=== PATIENT | male | born 1950 | race Caucasian/White ===

== ENCOUNTER → 2021-09-19 | Outpatient (CLI) | payer MEDICARE, MEDICAID | LOC: COL.RAD 09:18 | DX: R41.89 Other symptoms and signs involving cognitive functions and awareness (principal) | CPT/HCPCS: A9585 ==

== ENCOUNTER 2023-05-28 13:30 | Outpatient (RCR) | payer MEDICARE, MEDICAID | END 2023-05-30 | disposition home or self-care (01) | LOC: MKS.ESL.PT | DX: G91.8 Other hydrocephalus (principal); R29.6 Repeated falls; R26.89 Other abnormalities of gait and mobility ==

== ENCOUNTER 2023-06-25 12:00 | Outpatient (RCR) | payer MEDICARE, MEDICAID | END 2023-06-29 | disposition home or self-care (01) | LOC: MKS.ESL.PT | DX: G91.8 Other hydrocephalus (principal); R26.9 Unspecified abnormalities of gait and mobility; R26.89 Other abnormalities of gait and mobility ==

== ENCOUNTER 2024-06-28 16:55 | Inpatient (IN) | payer MEDICARE, MEDICAID ==
[~2024-06-28] VITALS: Ht 195.6 cm; Wt 85.1 kg
[~2024-06-28 16:55] MED LIST: AMOXICILLIN 8751 TAB PO
[2024-06-28] MEDS ORDERED: NAMENDA 10MG TA10 MG PO (19:24)
[2024-06-28] MEDS ORDERED: BIKTARVY 50-201 EACH PO (19:24)
[2024-06-28] MEDS ORDERED: ZOLOFT 50MG50 MG PO (19:24)
[2024-06-28] MEDS ORDERED: CRESTOR 10MG10 MG PO (19:24)
[2024-06-28] MEDS ORDERED: EXELON9.5 MG/24 TD (19:25)
[2024-06-28] MEDS ORDERED: oxyCODONE 5 MG TAB PO PRN (19:30)
[2024-06-28] MEDS ORDERED: D5 1/2 NS 1,000 ML IV SCH (19:30)
[2024-06-28] MEDS ORDERED: Morphine 4 MG/ML VIAL IV PRN (19:30)
[2024-06-28] MEDS ORDERED: Naloxone 0.4 MG/ML VIAL IV PRN (19:30)
[2024-06-28] MEDS ORDERED: Acetaminophen 500 MG TAB PO SCH (20:27)
[2024-06-28] MEDS ORDERED: Doxycycline Monohydrate 100 MG CAP PO SCH (21:00)
[2024-06-28] MEDS ORDERED: Memantine 10 MG TAB PO SCH (21:00)
--- NOTE | 2024-06-28 21:20 | NUR ---
Report recieved from JANESSA Snyder from ED. All questions answered at this time.
[2024-06-28 21:35] VITALS: BP 124/74; PULSE 66; TEMP 98
--- NOTE | 2024-06-28 21:42 | NUR ---
Patient arrived to room 326 at this time. Rates pain at 5/10, meds given. Needs met. Assessment and med rec complete. IV in right forearm flushes easily without complications. Oriented patient to room, bed, and call light. Call light and personal items in reach. Bed in low position and bed alarm on.
[2024-06-28 22:00] LABS: BASO % 0.3 % (0.0-2.0); GRAN # 8.9 K/mm3 (1.4-6.5); GRAN % 79.4 % (42.2-75.2); HEMATOCRIT 44.3 % (42.0-52.0); HEMOGLOBIN 15.5 g/dl (13.5-18.0); LYMPH # 1.3 K/mm3 (1.2-3.4); LYMPH % 11.3 % (20.0-51.0); MEAN CELL VOLUME 87 fl (80.0-100.0); MEAN CORPUSCULAR HEMOGLOBIN 31 pg (27-31); MEAN CORPUSCULAR HGB CONC 35 g/dl (33.0-37.0); MEAN PLATELET VOLUME 10.6 fl (7.4-10.4); MONO % 8.5 % (1.7-9.3); PLATELET COUNT 173 K/mm3 (130-400); RED BLOOD COUNT 5.08 M/mm3 (4.20-5.60); REDCELL DISTRIBUTION WIDTH-CV 12.7 % (11.5-14.5)
[2024-06-28 22:09] LABS: INR 1.2 (0.8-3.0); PROTHROMBIN TIME 12.8 SECONDS (9.7-12.8)
[2024-06-28 22:25] LABS: ALBUMIN 4.3 g/dL (3.4-4.8); BILIRUBIN,TOTAL 1.2 mg/dL (0.2-1.2); CALCIUM 10.5 mg/dL (8.4-10.2); CREATININE, serum 1.16 mg/dL (0.72-1.25); POTASSIUM 4.3 mEq/L (3.5-4.5); TOTAL PROTEIN 6.9 g/dl (6.2-8.1)
[2024-06-29] VITALS (14 sets, daily range): BP systolic 102–120; BP diastolic 63–74; PULSE 57–109; TEMP 97.7–98.5
[2024-06-29 00:56] LABS: COLLECTION METHOD CLEAN CATCH
[2024-06-29 02:24] LABS: PH 5.5 (5.0-8.5); URINE APPEARANCE CLEAR (CLEAR/HAZY); URINE BLOOD NEGATIVE (NEGATIVE); URINE COLOR Dark Yellow (YELLOW); URINE GLUCOSE TRACE (NEGATIVE); URINE KETONE 4+ (NEGATIVE); URINE NITRATE NEGATIVE (NEGATIVE); URINE PROTEIN(semi-quant) 1+ (NEGATIVE)
--- NOTE | 2024-06-29 07:24 | NUR ---
ROUNDED, PLAN OF CARE REVIEWED & MRI CALLED. THEY REPORT THEY WILL GET MRI DONE SOMETIME BETWEEN 1130 AND 2 PM. MADE AWARE
[2024-06-29] MEDS ORDERED: Patient's Own Medication Item PO SCH (09:00)
[2024-06-29] MEDS ORDERED: RIVASTIGMINE 4.6 MG/24 HR TD SCH (09:00)
--- NOTE | 2024-06-29 10:15 | NUR ---
Patient resting in bed. He is alert, but not fully oriented. He reports his name and birthday, but using white board and cell phone to tell me the date. He does not recall having a broken hip. He reports falling [place]. Assessment completed. Attempted to call consult to ENT, unsuccessful. but office staff given number and consutl information. Hospitalist team made aware. Awating MRI. High fall risk followed. Denies other needs at this time
--- NOTE | 2024-06-29 11:02 | NUR ---
Initial visit; Patient thanked Supervisor Shop for visiting and asking how he is doing. Supervisor Shop was good friends with his mother and let him know how much she enjoyed her. "Michael" let Supervisor Shop know that a fall brought him to the hospital and is hoping her prayers will get him back home. will keep Michael in her prayers and offered God's blessings.
--- NOTE | 2024-06-29 12:18 | NUR ---
animal care service worker was notified by patient's nurse that patient has had some confusion and that patient's son, Carson, was present when he was brought to the hospital. SW met with patient to discuss discharge planning. SW explained she meets with the surgical patients to discuss discharge needs. Patient stated that he did not know her was a surgery patient. SW discussed this with patient. Patient reports he lives in [place] with his . SW asked for patient's 's name, patient unable to provide and asked to come back to that question. SW explained they had a contact, Carson, listed. Patient stated that was his son, search in his phone and provided his P# [phone]. SW asked about PCP, patient could not remember PCP name but was adamant that it was a male. Patient received a call from Carson, patient asked his PCP name to Carson, social service manager could not hear the response but patient stated "well maybe I will call your mom then." Carson responded then patient stated "yeah maybe I should call Hafsa then." Patient ended the call. SW asked whom Hafsa is, patient stated that she was his significant other. SW asked if Hafsa was his as he stated earlier that he lives with his . Patient stated no, just girlfriend. SW asked whom his is, patient stated "oh that is Miesha." SW asked for clarification on /significant other, patient stated Miesha is his and Hafsa is his girlfriend. SW asked if patient has a DPOA-HC. Patient stated he was not certain if he had one and asked if that would be his . SW explained if patient does not have a DPOA-HC it would go to his next of kin which if he is , it would be his otherwise it would go to his children. SW asked for Miesha's phone number, patient called Miesha and put her on speaker phone. Miesha stated she was not patient's DPOA-HC and sounded surprised to find out patient was in the hospital. Patient stated he was in the hospital for back pain. SW asked about DME, patient stated he has none and that he is independent in his home. Patient stated he drives to and from appointments. SW contacted patient's son, Carson, P# [phone], and explained it appeared patient was confused on some of her questions and wanted to verify with him. Carson stated Miesha and the patient are . Carson reports to be patient's DPOA-HC. Carson reports Hafsa is patient's significant other and currently living in [place] and having medical concerns of her own. Hafsa P# [phone]. Patient's PCP is Dr. Mehta and Carson reports he has a social service manager at [facility], [facility]. Carson expressed patient has dementia and it has been getting worse the last month or so. Carson explained patient is currently living on his own but feels he is not able to do so anymore. Carson reported he received some concerning texts from patient earlier that morning stating that he was in [facility] and he was going to need a rescue squad to get him. DEISI explained she would not be able to make patient go to a nursing facility if he did not want to unless he does not have decision making capacity. Carson expressed he understood but patient mentioned when he came to the hospital that "it might be time". Carson stated if he goes to a nursing facility patient knows some residents at [facility], so that would be the first preference but other than that anywhere in [place] or near [place] would be preferred. DEISI explained she would notify the main social service manager, Adeline, of all of this information to keep in mind while working on his discharge plan and they would be in touch with him. Carson understood. DEISI contacted DEISI Mckeon at [facility]. Helena expressed patient is currently living alone above [facility]. Helena reports they have been discussing patient going to an AL or LTC for awhile but they have not been agreeable. Patient's insurance is now Medicare All Well, Helena expressed she believes All Well called the patient and with his dementia he changed it without notifying anyone. Helena expressed they have been trying to work with the patient and family on getting it changed back to his Humana/UHC that he had before but it has been difficult. Helena reports patient's Medicaid is not active, he was on the frail and elderly waiver but let his [employer] lapse. Helena expressed an application has been turned into [employer] but there has not been an update on the status. Helena reports patient has a DPOA-HC and it lists Hafsa and Carson, which Helena reports they are to make the decisions together according to the DPOA-HC paperwork. DEISI asked if patient has a form stating patient does not have decision making capacity. Helena stated no but the DPOA-HC form states it is active immediately. Helena expressed Hafsa is in [place] and has been coordinating patient's transportation to appointments through the [facility] from [place]. Helena reports patient does not drive. Helena believes rehab would be very beneficial for patient and if he would stay correction or even AL that would be best for the patient. Helena stated patient has been using [facility] due to his insurance being switched to All Well, so his son has to picker and packer the medications. Helena stated she is not certain patient has been taking his medications properly because of this. DEISI received the copy of the DPOA-HC which lists patient as the first agent, Hafsa as secondary and Carson as third then it states that Hafsa and Carson must make the decisions together. DEISI also notes it states that it would be active immediately. DEISI placed a copy of the DPOA-HC on the chart. DEISI notified main surgical social service manager, Adeline, and patient's nurse of the above information. Discharge plan: SNF
--- NOTE | 2024-06-29 13:24 | NUR ---
Patient sleeping. Reports being tired. Will let him rest.
--- NOTE | 2024-06-29 15:20 | NUR ---
precision printing worker faxed referral to [facility] and [facility]. secure emailed referral to [facility]. Discharge plan: SNF then possibly LTC after rehab
--- NOTE | 2024-06-29 16:52 | NUR ---
MADE AWARE OF MRI BEING COMPLETED. HOSPITALIST MADE AWARE OF WANTING PATIENT CLEARED FOR OR TMRW 06/30/24. DIET ORDERED AND PATIENT TO BE NPO 0000
--- NOTE | 2024-06-29 19:40 | NUR ---
Patient did well with dinner. Denies pain at rest. Report to [facility] services[facility]
--- NOTE | 2024-06-29 20:15 | NUR ---
Patient resting in bed. Denies any pain or needs at this time. Assessment complete. IV in right hand infusing without complicaitons. Call light and personal items in reach. Bed in low position and bed alarm on.
[2024-06-30] VITALS (18 sets, daily range): BP systolic 93–124; BP diastolic 55–97; PULSE 52–99; TEMP 97–98.5
[2024-06-30 07:00] LABS: BASO % 0.7 % (0.0-2.0); EOS # 0.2 K/mm3 (0.0-0.7); EOS % 2.5 % (0.0-4.0); GRAN # 3.5 K/mm3 (1.4-6.5); GRAN % 57.5 % (42.2-75.2); HEMATOCRIT 39.9 % (42.0-52.0); HEMOGLOBIN 13.9 g/dl (13.5-18.0); LYMPH # 1.7 K/mm3 (1.2-3.4); LYMPH % 27.4 % (20.0-51.0); MEAN CELL VOLUME 87 fl (80.0-100.0); MEAN CORPUSCULAR HEMOGLOBIN 30 pg (27-31); MEAN CORPUSCULAR HGB CONC 35 g/dl (33.0-37.0); MEAN PLATELET VOLUME 10.6 fl (7.4-10.4); MONO # 0.7 K/mm3 (0.1-0.6); MONO % 11.6 % (1.7-9.3); PLATELET COUNT 156 K/mm3 (130-400); RED BLOOD COUNT 4.58 M/mm3 (4.20-5.60)
[2024-06-30 07:14] LABS: CALCIUM 10.1 mg/dL (8.4-10.2); CREATININE, serum 0.87 mg/dL (0.72-1.25); POTASSIUM 3.8 mEq/L (3.5-4.5)
--- NOTE | 2024-06-30 09:13 | NUR ---
Patient awake, alert, oriented x2. Laying in bed, requires frequent reorienting and reminders of why he is in the hospital and why he cannot get out of bed on his own. Bed in lowest position with call light within reach. Son updated with plan - Dr. Aguilar to call later.
--- NOTE | 2024-06-30 09:37 | NUR ---
Phone call to son and SAPNA Byrd, consents completed.
[2024-06-30] MEDS ORDERED: hydrALAZINE 20 MG/ML 1 ML VIAL IV PRN (10:00)
[2024-06-30] MEDS ORDERED: LR 1,000 ML IV SCH (10:00)
[2024-06-30] MEDS ORDERED: droPERidol 2.5 MG/ML 2 ML VIAL IV PRN (10:00)
[2024-06-30] MEDS ORDERED: fentaNYL 50 MCG/ML 1 ML SYRINGE/VIAL [PACU/SDC ONLY] IV PRN (10:00)
[2024-06-30] MEDS ORDERED: Ondansetron 4 MG/2 ML VIAL IV PRN ×2 (10:00→12:45)
[2024-06-30] MEDS ORDERED: HYDROmorphone 1 MG/1 ML SYRINGE [PACU/SDC ONLY] IV PRN (10:00)
[2024-06-30] MEDS ORDERED: fentaNYL 50 MCG/ML 2 ML VIAL ONE (10:08)
[2024-06-30] MEDS ORDERED: Glycopyrrolate 0.2 MG/ML 1 ML VIAL ONE (10:09)
[2024-06-30] MEDS ORDERED: NS 10 ML IV ONE (10:09)
[2024-06-30] MEDS ORDERED: Ondansetron 4 MG/2 ML VIAL ONE (10:09)
[2024-06-30] MEDS ORDERED: dexAMETHasone 10 MG/ML VIAL ONE (10:09)
--- NOTE | 2024-06-30 10:30 | NUR ---
Pt transported down to OR
[2024-06-30] MEDS ORDERED: ePHEDrine 50 MG/ML VIAL ONE (11:13)
[2024-06-30] MEDS ORDERED: HYDROmorphone 0.5 MG/0.5 ML SYRINGE IV PRN (12:45)
[2024-06-30] MEDS ORDERED: Magnes Hydrox (MOM) 80 MG/ML 30 ML CUP PO PRN (12:45)
[2024-06-30] MEDS ORDERED: Naloxone 0.4 MG/ML VIAL IV PRN (12:45)
[2024-06-30] MEDS ORDERED: NS 1,000 ML IV SCH (12:45)
[2024-06-30] MEDS ORDERED: oxyCODONE 5 MG TAB PO PRN ×2 (12:45)
[2024-06-30] MEDS ORDERED: Acetaminophen 500 MG TAB PO SCH (13:44)
--- NOTE | 2024-06-30 15:46 | NUR ---
technicians and trades workers was notified [facility] is unable to accept due to insurance unless patient is able to private pay. DEISI was notified [facility] is unable to accept. DEISI spoke with main sexual assault social worker, Adeline, regarding referrals. DEISI faxed referral to [facility] [place] [place] ([place] and [facility] ([place] DEISI also secure emailed the referral to [facility] and [facility] because of fax difficulties. Discharge plan: SNF
--- NOTE | 2024-06-30 16:02 | NUR ---
Sheet Metal Supervisor spoke with Princess at [facility] who requested patient's insurance card. DEISI met with patient and with his permission, looked through his wallet (with Arleen Blister Pack Operator also present) and there was no All Well card. There was a Humana Card there. DEISI contacted Princess and stated there was no card that SW could locate. Princess advised she would see what she can do with the ID number. DEISI contacted Carson son to provide update on referrals. Carson thought possibly patient was supposed to switched back to Humana possibly this month. DEISI sent an email to admissions to check on this. DEISI then received a call from DEISI Malik at [facility] who advised son was supposed to be in touch with [employer] James Counselor to discuss switching plans and that it would not be in effect this month. Helena wasn't sure if he switched if it would change Jul 31 or Sep 30. Helena stated they are also following up with [facility] to get the frail and elderly waiver back in place.
[2024-06-30] MEDS ORDERED: ceFAZolin 2 G in Water For Injection,Sterile 20 ML IV SCH (18:00)
[2024-06-30] MEDS ORDERED: Sennosides/Docusate 8.6-50 MG TAB PO SCH (21:00)
--- NOTE | 2024-06-30 23:07 | NUR ---
patient lyin in bed, alert and oriented x3 with some confusion/forgetfullness. denies chest pain and shortness of breath. IV in RF is patnet, site CDi with NS running at 75 ml/hr. right hip/upper leg with x3 sites with guaze and tegaderm, right facial lac to eyebrow x9 stitches with bruising noted to right orbital area, sites CDI. fall precautions in place, call light within reach. pt repositioning self as needed. pt has no further needs, questions or concerns at this time.
[2024-07-01] VITALS (11 sets, daily range): BP systolic 97–142; BP diastolic 59–85; PULSE 62–69; TEMP 97.7–98.8
[2024-07-01 06:03] LABS: BASO % 0.1 % (0.0-2.0); GRAN # 8.3 K/mm3 (1.4-6.5); GRAN % 81.2 % (42.2-75.2); HEMOGLOBIN 14.8 g/dl (13.5-18.0); LYMPH % 9.7 % (20.0-51.0); MEAN CELL VOLUME 87 fl (80.0-100.0); MEAN CORPUSCULAR HEMOGLOBIN 31 pg (27-31); MEAN CORPUSCULAR HGB CONC 35 g/dl (33.0-37.0); MEAN PLATELET VOLUME 10.5 fl (7.4-10.4); MONO # 0.9 K/mm3 (0.1-0.6); MONO % 8.6 % (1.7-9.3); PLATELET COUNT 167 K/mm3 (130-400); RED BLOOD COUNT 4.83 M/mm3 (4.20-5.60); REDCELL DISTRIBUTION WIDTH-CV 13.1 % (11.5-14.5)
[2024-07-01 06:28] LABS: CALCIUM 10.6 mg/dL (8.4-10.2); CREATININE, serum 0.83 mg/dL (0.72-1.25); POTASSIUM 3.7 mEq/L (3.5-4.5)
--- NOTE | 2024-07-01 09:22 | NUR ---
Patient awake, alert, oriented x2. Up with PT this AM. Requires frequent reorienting. Denies pain currently, dressing to right hip C/D/I. Bed in lowest position with call light within reach.
--- NOTE | 2024-07-01 12:09 | NUR ---
DEISI Knowles contacted [facility] whom expressed they do not have a bed available. [facility] is also unable to accept patient. DEISI Knowles was notified that [facility] is going to call and follow up with Adeline. DEISI was notified that [facility] at this time is unable to accept due to the patient's HIV medications costing $4,000 per month. DEISI asked if family has a supply already of his medications would they be able to use those and accept. DEISI will follow up on this. DEISI Knowles faxed clinical updates to [facility]. DEISI contacted [facility] to determine if patient could go to [facility] for rehab then LTC or AL from there. Palmira from [facility] is going to speak with her team and discuss patient's case. Discharge plan: SNF
--- NOTE | 2024-07-01 16:46 | NUR ---
Fire And Safety Helper confirmed with Ricardo at [facility] that they cannot accept due to patient's HIV medications costing $4,000-$5000 per month. DEISI was contacted by [facility] who advised they will submit for authorization but were still working through patient's medications. DEISI provided update to both Carson and Hafsa on the status of placement and advised patient's insurance and cost of his HIV medication were unfortunately the two main barriers to placement at this time. DEISI staffed with Resident Associate who sent message to Gaby at [facility] [employer] about creating a "carve out" contract with a SNF to cover the cost of his medication that the facilities cannot afford.
[2024-07-02] VITALS (12 sets, daily range): BP systolic 109–156; BP diastolic 67–76; PULSE 58–71; TEMP 97.1–99.3
--- NOTE | 2024-07-02 03:27 | NUR ---
Patient sitting up to recliner, alert and oriented x3 with occasional confusion. reports 4/10 pain in right upper leg, scheduled tylenol given as requested. pt up to ambulate with gait belt and walker to bathroom and back in recliner. right hip with x3 sites with gauze and tegaderm and right facial lac to eyebrow with 9 stitches, both CDI. bruising noted to right eye. fall precautions in place, call light within reach. pt has no further needs, questions or concerns at this time.
--- NOTE | 2024-07-02 08:00 | NUR ---
PATIENT SITTING UP IN CHAIR. ALERT. CONFUSED BUT EASILY REDIRECTED. COMMENTS ON NEEDING TO VOID, REMINDED A FEW TIMES HE CAN USE THE URINAL, QUICKLY AGREES AND ATTEMPTS, THEN REPEATS THIS A FEW MINUTES LATER. HEAD TO TOE ASSESSMENT COMPLETED, MORNING MEDS GIVEN, NO COMPLAINTS AT THIS TIME. CALL LIGHT IN REACH, CHAIR ALARM IN PLACE, NONSKID SOCKS ON.
--- NOTE | 2024-07-02 12:31 | NUR ---
blasting worker faxed updates to [facility] along with patient's DPOA-HC. Discharge plan: SNF
--- NOTE | 2024-07-02 16:38 | NUR ---
Information Systems Specialist spoke with Rachana at [facility] who had no heard back from patient's insurance and advised they were still working through the cost of medications. DEISI received a message from DEISI Mckeon at patient's PCP office who advised patient's family has a meeting with the [facility] July 14 to discuss changing his insurance. Helena also provided a contact for patient's HIV "[employer]" Division Roadmaster, Jacky (ph#[phone]). DEISI contacted Jacky who advised patient's current CM was Pavithra (ph#[phone]). Pavithra was under the impression that the medications could still be covered under the [employer] program, even in a nursing facility. Pavithra stated she will speak with Jacky to determine the process for this. DEISI received a message from Rachana at [facility] stating they could possibly consider if patient brought in his medications from home. Per RN, patient has 27 pills left in his bottle from home. DEISI will follow up with all parties tomorrow.
--- NOTE | 2024-07-02 23:12 | NUR ---
Patient assessed around 2104. Alert, forgetful/disoriented. Easily redircted. Complained of level 7 pain to right hip area. Given PRN Roxicodone and scheduled APAP. 3 dressings to right femur surgical site are CDI. In bed with call light within reach. High fall risk precautions in place. Bed alarm on. Voices no questions, needs, or concerns at this time.
[2024-07-03] VITALS (12 sets, daily range): BP systolic 100–130; BP diastolic 66–77; PULSE 62–81; TEMP 97.7–98.9
--- NOTE | 2024-07-03 06:24 | NUR ---
Patient given PRN Roxicodone twice as requested for pain during the night. Increased weakness/unsteady gait this morning. Incontinent of urine. Bed change provided. Per ortho, changed top dressing to right femur surgical site. No drainage to dresing, stewart intact. Patient has been awake most of night. Voices no questions, needs, or concerns at this time. In bed with call light within reach. High fall risk precautions in place. Bed alarm on.
--- NOTE | 2024-07-03 08:05 | NUR ---
pt in restroom upon entry, assisted patient to recliner for breakfast. vss. pt reports some discomfort in his right hip but denies need for pain medication. x3 incisions are cdi. bruising present to right hip as well as right side of face. all sutures to right eye are intact. teds to ble. pt is oriented this morning. denies needs at this time. call light in reach. fall precautions in place.
--- NOTE | 2024-07-03 15:08 | NUR ---
Thread Singer followed up with Rachana at [facility] and provided information on patient's home medication count and the contact information for his Positive Connections Hr Payroll Coordinator. SW was contacted by [facility] requested updated therapy notes, which DEISI provided via secure email. DEISI contacted patient's son, Carson with an update.
--- NOTE | 2024-07-03 17:55 | NUR ---
Patient laying in bed. Ate dinner independently. VSS. IV CDI. Denies pain. Call light within reach
--- NOTE | 2024-07-03 20:30 | NUR ---
Scheduled meds administered per NOV. Shift assessment complete. Pt is A&O x4 at this time. Bruising to Rt. mid-low back and Rt. hip. Sutures over Rt. eyebrow. Sutures intact and open to air. X3 incision sites to Rt hip dressed w/ gauze & tegaderm. Dressings CDI. Pt. reports pain is 4/10 with 4 being an acceptable level of pain. No further outstanding findings. Neurocheck complete. Pt. denies needs or request at this time. Call light in reach and fall precautions in place.
--- NOTE | 2024-07-03 23:15 | NUR ---
Pt had unwitnessed fall at 2300. Pt. was found on restroom floor by RN after bed alarm sounded. Pt. denies hitting head or further injury. Vital signs obtained and neuro check completed. This nurse, charge nurse, and third RN assisted pt. back to bed. rehabilitation technician aware and boiling house hand notified. HospitalistGalen PA, notified. No new orders received at this time. Fall precautions in place and telesitter implemented.
[2024-07-04] VITALS (12 sets, daily range): BP systolic 123–151; BP diastolic 61–88; PULSE 69–83; TEMP 97.3–98.7
--- NOTE | 2024-07-04 02:45 | NUR ---
Assisted pt to restroom w/ PCT. Noted pt is putting all weight on Lt side and is wincing with movement. Pt. states he "can't put any weight on it." Notified hospitalist, FREDY Aaron. New orderes received.
--- NOTE | 2024-07-04 02:57 | NUR ---
Notified donor technician of new orders.
--- NOTE | 2024-07-04 03:56 | NUR ---
Pt. c/o 05/09 pain following repositioning for X-rays. Analgesia administered.
--- NOTE | 2024-07-04 06:13 | NUR ---
Assisted pt. to restroom around 0500 and gait had not improved. Upon neurocheck at 0600 pt is only able to move RLE in bed. He reports pain is tolerable following administration of PRN analgesia per MAR and application of ice to affected extremety. Pt denies needs or requests at this time. Call light is in reach, fall precautions in place, and tellesitter in use.
--- NOTE | 2024-07-04 08:00 | NUR ---
Patient sitting up in bed, A&Ox4. VSS. IV CDI. Reports pain in RT hip, pain medication given as requested. Call light within reach. Bed alarm on and telesitter in the room.
--- NOTE | 2024-07-04 16:29 | NUR ---
7 SUTURES REMOVED BY JANESSA PEDRAZA. PATIENT TOLERATED WELL. INCISION CDI, EDGES WELL APPROXIMATED. NO FURTHER NEEDS EXPRESSED.
[2024-07-05] VITALS (11 sets, daily range): BP systolic 117–162; BP diastolic 69–86; PULSE 60–76; TEMP 97.7–98.7
--- NOTE | 2024-07-05 07:24 | NUR ---
Patient laying in bed sleeping, easily awakened with verbal command. VSS. IV CDI. Laying on left side. Ice on RT hip. Call light within reach, bed alarm on and telesitter in the room.
[2024-07-06] VITALS (12 sets, daily range): BP systolic 106–134; BP diastolic 51–87; PULSE 65–93; TEMP 97.6–98.8
[2024-07-06 06:12] LABS: BASO # 0.1 K/mm3 (0.0-0.2); BASO % 0.8 % (0.0-2.0); EOS # 0.1 K/mm3 (0.0-0.7); EOS % 2.2 % (0.0-4.0); GRAN % 63.8 % (42.2-75.2); HEMATOCRIT 38.7 % (42.0-52.0); HEMOGLOBIN 12.9 g/dl (13.5-18.0); LYMPH # 1.4 K/mm3 (1.2-3.4); LYMPH % 22.4 % (20.0-51.0); MEAN CELL VOLUME 91 fl (80.0-100.0); MEAN CORPUSCULAR HEMOGLOBIN 30 pg (27-31); MEAN CORPUSCULAR HGB CONC 33 g/dl (33.0-37.0); MEAN PLATELET VOLUME 9.5 fl (7.4-10.4); MONO # 0.6 K/mm3 (0.1-0.6); MONO % 10.2 % (1.7-9.3); PLATELET COUNT 187 K/mm3 (130-400); RED BLOOD COUNT 4.27 M/mm3 (4.20-5.60); REDCELL DISTRIBUTION WIDTH-CV 13.3 % (11.5-14.5)
[2024-07-06 06:35] LABS: CALCIUM 10.3 mg/dL (8.4-10.2); CREATININE, serum 0.84 mg/dL (0.72-1.25); MAGNESIUM 1.9 mg/dL (1.6-2.6); POTASSIUM 4.2 mEq/L (3.5-4.5)
--- NOTE | 2024-07-06 08:00 | NUR ---
PATIENT SLIGHTLY UPRIGHT IN BED. AAOX2, SELF AND LOCATION. HEAD TO TOE ASSESSMENT COMPLETED. MORNING MEDS GIVEN. AWAITING BREAKFAST. BED IN LOWEST POSITON, CALL LIGHT IN REACH, BED ALARM ON, URINAL AT BEDSIDE, NOSKID SOCKS ON.
--- NOTE | 2024-07-06 09:43 | NUR ---
qualified craft worker electrician faxed clinical updates to [facility]. SW contacted Francisco at [facility] whom expressed the team was currently in their team morning meeting but would follow up with them afterwards to determine where they were at in this process. Francisco expressed he just returned from vacation, social sciences department chair provided a quick update on the patient's needs at this time and his HIV medication cost. Francisco will follow up with DEISI or main surgical SWYareli. Discharge plan: SNF
--- NOTE | 2024-07-06 15:00 | NUR ---
grab jack worker contacted Francisco at [facility] to follow up on referral. Francisco stated they were waiting on the cost of the medication and would follow up with social group worker after he hears back from his director public policy on this cost. Discharge plan: SNF
--- NOTE | 2024-07-06 20:49 | NUR ---
Patient assessed around 1954. Alert with confusion. Reports level 5 pain to right hip area, facial grimacing with turning. Given scheduled APAP and PRN Roxicodone. Peripheral INT to right forearm. Denies SOB and dyspnea. LS CTA. HRR. BSAx4. No edema. Redness/bruising continues to right hip area from fall. Dressing to three surgical sites to right hip/lateral thigh are CDI. Bruising to area. Voices no questions, needs, or concerns at this time. In bed with call light within reach. High fall risk precautions in place. Telesitter in room. Bed alarm on.
[2024-07-07] VITALS (12 sets, daily range): BP systolic 114–152; BP diastolic 64–87; PULSE 65–96; TEMP 98.2–99.8
--- NOTE | 2024-07-07 05:31 | NUR ---
Patient has pain to right hip, but does not want to take anything besides Tylenol at this time. Was incontinent of urine, hygiene care provided. Voices no questions, needs, or concerns at this time. In bed with call light within reach. High fall risk precautions in place. Bed alarm on. Telesitter in room.
--- NOTE | 2024-07-07 11:51 | NUR ---
DEISI spoke with Francisco at [facility] regarding referral. Francisco stated that they are unable to accept patient for admission due to cost of medications. When asked about patient providing the medications himself through the current assistance program through [employer], Francisco stated that the facility is not allowed to do that and would be responsible for all costs. DEISI spoke with Kusum at [facility] who stated that if patient has Title 19 Medicaid that it will cover the cost of his meds in LTC. DEISI then called Helena at PCP office who stated that they have been working with patient's son Carson to get all required documentation to re-submit application for Title 19 services. She states that they submitted the completed application on Saturday07/03/24. DEISI discussed denial and barriers with Director Eliza Vincent. She asked SW to contact [facility] to inquire if they can accept if patient is approved for Title 19 benefits. DEISI spoke with Yesenia, Metallurgy Teacher, to ask this question. She states that they cannot accept under these circumstances. She shared that the only way they can accept patient with current medications/costs would be if there was a "carve out" letter provided stating that insurance or other source would be paying for medication costs and facility would not be responsible for these costs. She also stated that the prescribing physician is the one who would need to write this carve out letter to insurance. Yesenia stated that they would be able to accept patient for admission if he has that carve out letter from insurance. DEISI called Helena at PCP office to communicate the need for carve out letter to be sent to insurance provider by prescribing physician to assist with placement. Helena stated she does not have contact information for patient's insurance and she would need to talk with PCP and Infectious Disease physician to inquire about them writing letter. DEISI faxed copy of patient's demographic sheet to Helena showing contact information for [employer]. Discharge plan: TBD
--- NOTE | 2024-07-07 12:07 | NUR ---
Pt sitting up in the chair with chair alarm on. pt continues to have telesitter with him. Pt was alert and oriented x4 during my assessment. I did assist OT with gettin him up to the chair. He did okay, but was not able to take any steps, only pivot. He did not use the walker
--- NOTE | 2024-07-07 12:45 | NUR ---
sitting up in chair, bedside shift report received from JANESSA Enriquez
--- NOTE | 2024-07-07 14:10 | NUR ---
physical therapy was in to work with patient, connor had voided a scant amount inurinal before therapy arrived, when he stood from chair he was incontinent of large amount clear yellow urine, he was only able to take only a few steps from chair to bed, then assisted to lying down, incontinent care provided, MARY ALICE hose removed at this time, he is alert and oriented times 4 for me, skin is warm and dry, color is good, heart rate is strong and regular, lungs CTA, abdomen is soft and non distended and bowel sounds present in 4 quads, patient states he is passing flatus without difficulty, peripheral pulses present in 4 extremities, has 3 sites to right hip with gauze dressings that are CD&I, cocyx is reddened and mepilex dressing placed, has bruising to area under right eye and laceration area is closed, c/o pain and medicated with roxicodone 2.5mg, will allow to rest
--- NOTE | 2024-07-07 14:56 | NUR ---
appears to be sleeping, in bed with eyes closed, resp quiet and easy
--- NOTE | 2024-07-07 16:28 | NUR ---
entered room and he is trying to use urinal lying in bed and unable, stood him at bedside and he was able to void small amount, needs 2 assist and encouragement to stand, then back to bed, MARY ALICE vides on
--- NOTE | 2024-07-07 19:00 | NUR ---
awake resting in bed, had supper and tolerated well
--- NOTE | 2024-07-07 19:40 | NUR ---
bedside shift report given to JANESSA Tipton
--- NOTE | 2024-07-07 21:43 | NUR ---
Patient assessed around 2044. Alert with confusion. Reports level 10 pain to right hip. Has recently stood on side of bed to use urinal with two assist. Given PRN Roxicodone for pain. Peripheral INT to right forearm. Denies having SOB and dyspnea. LS CTA. HRR. BSAx4. Refused stool softener. Red abrasion to right hip/flank area. Dressings to three surgical sites from hip surgery are CDI. Voices no questions, needs, or concerns at this time. In bed with call light within reach. High fall risk precautions in place. Bed alarm on. Telesitter in room.
[2024-07-08] VITALS (14 sets, daily range): BP systolic 104–135; BP diastolic 66–76; PULSE 87–101; TEMP 97.8–100.8
--- NOTE | 2024-07-08 06:30 | NUR ---
Patient has had increased pain to right hip during the night. Received scheduled Tylenol and PRN Roxicodone per orders, see MAR for times. Has been incontinent of urine during the night. Voices no questions, needs, or concerns at this time. In bed with call light within reach. High fall risk precautions in place. Bed alarm on. Telesitter in room.
--- NOTE | 2024-07-08 08:00 | NUR ---
PATIENT SITTING UP IN BED. ORIENTED X2, SELF AND LOCATION. HEAD TO TOE ASSESSMENT COMPLETED. MORNING MEDS GIVEN. PATIENT REPORTS GENERALIZED PAIN, HIGHLIGHTING RIGHT LOW BACK, RIGHT SIDE, AND A HEADACHE. SCHEDULED TYLENOL GIVEN AND REPLACED ICE PACK TO THE RIGHT SIDE. PATIENT HAS BEEN INCONTINENT, URINAL AT BEDSIDE. CHANGED LINEN AND PROVIDED BRIEF. REPLACED MEPIPLEX AT THE SACRUM. BED IN LOWEST POSITION, CALL LIGHT IN REACH, BED ALARM ON.
[2024-07-08 09:32] LABS: BASO # 0.1 K/mm3 (0.0-0.2); BASO % 0.5 % (0.0-2.0); EOS % 0.3 % (0.0-4.0); GRAN # 9.2 K/mm3 (1.4-6.5); HEMATOCRIT 37.4 % (42.0-52.0); LYMPH # 1.3 K/mm3 (1.2-3.4); LYMPH % 11.1 % (20.0-51.0); MEAN CELL VOLUME 88 fl (80.0-100.0); MEAN CORPUSCULAR HEMOGLOBIN 31 pg (27-31); MEAN CORPUSCULAR HGB CONC 35 g/dl (33.0-37.0); MEAN PLATELET VOLUME 9.2 fl (7.4-10.4); MONO # 1.1 K/mm3 (0.1-0.6); MONO % 9.5 % (1.7-9.3); PLATELET COUNT 206 K/mm3 (130-400); RED BLOOD COUNT 4.23 M/mm3 (4.20-5.60); REDCELL DISTRIBUTION WIDTH-CV 13.2 % (11.5-14.5)
[2024-07-08 09:48] LABS: CALCIUM 10.3 mg/dL (8.4-10.2); CREATININE, serum 0.82 mg/dL (0.72-1.25); POTASSIUM 3.9 mEq/L (3.5-4.5)
--- NOTE | 2024-07-08 10:45 | NUR ---
CALLED RADIOLOGY FOR CXR, SEE ORDERS.
--- NOTE | 2024-07-08 12:30 | NUR ---
STRAIGHT CATH PATIENT ORDERED BY PROVIDER TO OBTAIN UA SAMPLE. REMOVED 1950CC OF URINE, DARK YELLOW. PROVIDER NOTIFED. PATIENT DENIED ANY PAIN IN THE ABDOMEN OR BLADDER. REPORTS SOME RELIEF POST CATH.
[2024-07-08 13:00] LABS: COLLECTION METHOD CLEAN CATCH
[2024-07-08 13:05] LABS: PH 5.5 (5.0-8.5); URINE APPEARANCE CLEAR (CLEAR/HAZY); URINE BLOOD NEGATIVE (NEGATIVE); URINE COLOR YELLOW (YELLOW); URINE GLUCOSE NEGATIVE (NEGATIVE); URINE KETONE NEGATIVE (NEGATIVE); URINE NITRATE NEGATIVE (NEGATIVE); URINE PROTEIN(semi-quant) NEGATIVE (NEGATIVE); URINE UROBILINOGEN 0.2 E.U/dL (0.2-1.0)
--- NOTE | 2024-07-08 15:41 | NUR ---
CALLED RADIOLOGY ABOUT CXR ORDERED THIS AM, SECOND ATTEMPT TO GET X-RAY DONE.
--- NOTE | 2024-07-08 16:08 | NUR ---
DEISI received call from Ricardo at [facility] stating that they have been in contact with their Corporate leadership regarding the carve out letter needed for patient's HIV medication. SW was informed that they could accept patient for admission with the carve out letter IF he was only being admitted for skilled care and discharging to home. However, since patient will require LTC, they state that the carve out letter will NOT apply to that level of care, therefore they cannot accept patient for admission at this time. DEISI discussed with Director Eliza Vincent. DEISI sent email to financial counselor Natalie and her leadership to request assistance from them to expedite the Medicaid application that PCP DEISI Malik submitted last week. Patient will remain inpt until safe discharge can be secured.
[2024-07-09] VITALS (12 sets, daily range): BP systolic 99–145; BP diastolic 58–78; PULSE 87–107; TEMP 98.3–99.8
[2024-07-09 06:21] LABS: BASO % 0.4 % (0.0-2.0); EOS # 0.1 K/mm3 (0.0-0.7); EOS % 0.5 % (0.0-4.0); GRAN # 8.4 K/mm3 (1.4-6.5); GRAN % 77.2 % (42.2-75.2); HEMOGLOBIN 11.7 g/dl (13.5-18.0); LYMPH # 1.2 K/mm3 (1.2-3.4); LYMPH % 11.4 % (20.0-51.0); MEAN CELL VOLUME 90 fl (80.0-100.0); MEAN CORPUSCULAR HEMOGLOBIN 30 pg (27-31); MEAN CORPUSCULAR HGB CONC 34 g/dl (33.0-37.0); MEAN PLATELET VOLUME 9.6 fl (7.4-10.4); MONO # 1.1 K/mm3 (0.1-0.6); MONO % 9.9 % (1.7-9.3); PLATELET COUNT 194 K/mm3 (130-400); RED BLOOD COUNT 3.88 M/mm3 (4.20-5.60); REDCELL DISTRIBUTION WIDTH-CV 13.3 % (11.5-14.5)
[2024-07-09 06:22] LABS: HEMATOCRIT 34.9 % (42.0-52.0)
[2024-07-09 06:36] LABS: CALCIUM 10.1 mg/dL (8.4-10.2); CREATININE, serum 0.85 mg/dL (0.72-1.25); POTASSIUM 4.1 mEq/L (3.5-4.5)
[2024-07-09] MEDS ORDERED: Cefepime 1 G in Water For Injection,Sterile 10 ML IV SCH (08:00)
--- NOTE | 2024-07-09 08:00 | NUR ---
PATIENT SITTING UP IN CHAIR, HEAD TO TOE ASSESSMENT COMPLETED. MORNING MEDS GIVEN. D/C RIGHT WRIST IV, NEW R HAND IV INSERTED. REPORTS PAIN RIGHT LOW BACK. PAIN MEDS GIVEN. CHAIR ALARM ON, NONSKID SOCKS ON, CALL LIGHT IN REACH, TELASITER IN PLACE.
[2024-07-09] MEDS ORDERED: Doxycycline Monohydrate 100 MG CAP PO SCH (09:00)
--- NOTE | 2024-07-09 09:20 | NUR ---
CALLED AND ORDERED SPECIALTY MATRESS PATIENT'S ADL'S HAVE SIGNIFICANTLY DECLINED REQUIRING 2-3 MAX ASSIST WITH TRANSFERS. NO MATRESS AVAILABLE. PATIENT HAS NEW SPECIALTY BED IN ROOM NOW. PATIENT CURRENTLY UP IN BEDSIDE CHAIR WITH PT.
[2024-07-09] MEDS ORDERED: Iohexol 300 - 100 ML VIAL IV ONE (11:22)
[2024-07-09] MEDS ORDERED: NS 100 ML IV SCH (11:42)
--- NOTE | 2024-07-09 12:12 | NUR ---
DEISI attended clinical rounds, patient now being treated for pneumonia. SW unable to secure post acute placement for patient with barriers being insurance and cost of HIV medications. DEISI received call from DEISI Malik at PCP office, stating that she has talked with CHUNG Lamor who is continuing to work with patient's son and significant other on patient's Medicare insurance. Helena stated that she is still unsure if change would be effective the july or september. Helena clarified that the medicaid application to re-instate benefits was submitted approximately 3 weeks ago and that she followed up with [facility] on 07/03 to check status of application. No decision has been made at this time. DEISI encouraged Helena to follow up with [facility] to request application to be expedited. DEISI talked with Director Eliza Vincent regarding lack of ability to secure placement. Eliza suggested resubmitting referrals for placement with medicaid pending status. DEISI called [facility] in [place] and spoke with Kelsey. DEISI discussed the difficulty in placement related to cost of medications and insurance. Kelsey shared that the medication cost would not be a barrier for admission due to the medication being paid for by patient and not facility. She also shared that the have just recently been approved to be a [facility] Medicaid provider. She did agree to review the referral. DEISI called Helena at PCP office back to inquire about type of Medicaid applied for. She stated it is [facility] medicaid and agreed to fax SW a copy of the application to add to referral to [facility]. Referral for placement faxed for review. Discharge plan: SNF to LTC vs AL
--- NOTE | 2024-07-09 20:00 | NUR ---
PATIENT IS ORIENTED X2, NOTED CONFUSION/FORGETFULNESS. C/O PAIN IN RLE WITH MOVEMENT. GAVE PRN ROXICODONE & TYLENOL FOR LOW GRADE TEMPS. ALL OTHER VSS. RIGHT HIP DSG IS CD&I WITH GAUZE. TEDS & SCD'S TO BLE. CLEARY TO DD WITH MOD AMOUNTS OF YELLOW URINE NOTED. RIGHT HAND IV TO INT. NOTED SKIN ISSUES, SEE ASSESSMENT. HEAD TO TOE COMPLETE. HS MEDS GIVEN. PATIENT RESTING UP IN BED WITH CALL LIGHT IN REACH AND BED ALARM ON.
[2024-07-10] VITALS (14 sets, daily range): BP systolic 110–130; BP diastolic 67–79; PULSE 76–99; TEMP 98–99
--- NOTE | 2024-07-10 08:41 | NUR ---
Pt incontinent of stool this morning. Asked pt if he knows when he needs to use the restroom, he stated he did. Informed him to please notify nursing so that we can help him to the commode. He said, "I know." Assisted pt to the chair during this time. Gave pt full bed bath, new gown and changed linens. Breakfast has been ordered for pt
[2024-07-10 10:11] LABS: CD4 CD8 Ratio 0.65 (1.00-2.90); CD4 Helper T Cell 26.6 % (29.0-59.0); CD8 Suppressor T Cells 40.8 % (18.0-36.0)
--- NOTE | 2024-07-10 10:36 | NUR ---
DEISI received call from Fany at [facility] stating that they do not accept patient's [employer] Medicare insurance. She stated that they cannot accept patient for rehab but would consider him for LTC. DEISI asked if patient received rehab at a disfferent SNF if they would take him for LTC, which she stated yes they would work with SNF facility. DEISI called Francisco at [facility] who confirmed conversation from earlier this week realted to being able to accept patient for rehab with carve out letter. Francisco asked for clinical updates to take to his clinical team. Updates faxed. Discharge plan: SNF to transition to LTC
[2024-07-11] VITALS (11 sets, daily range): BP systolic 102–127; BP diastolic 65–70; PULSE 60–97; TEMP 97.4–100
--- NOTE | 2024-07-11 08:00 | NUR ---
PATIENT IS ORIENTED X2, NOTED CONFUSION/FORGETFULNESS. PATIENT HAS FREQUENT FALLS, TELESITTER IN ROOM. VSS. REPORTS LITTLE DISCOMFORT IN RLE THIS AM. GAVE TYLENOL WITH AM MEDS. NO C/O N/V. TOLERATING GENERAL DIET. CLEARY TO DD. 2 MAX ASSIST WITH TRANSFERS. PT/OT CONSULTED. HEAD TO TOE ASSESSMENT COMPLETE. RIGHT HAND IV TO INT. BED ALARM ON. CALL LIGHT IN REACH. PATIENT ROOM DIRECTLY ACCROSS FROM NURSE STATION.
--- NOTE | 2024-07-11 12:41 | NUR ---
Data: Patient accepted spiritual care visit offered during Mental Health Program Director rounds. 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 Assessment: Patient is tired of being in the hospital. Sleepy. In pain. Plan of Care: Mental Health Program Director found two books from the library in the outpatient waiting area. Patient accepted both books. Mental Health Program Director played music from [employer]. Mental Health Program Director provided a prayer. Patient thanked Mental Health Program Director for the visit. Chaplains will remain available as needed/requested while Patient is admitted to this hospital.
[2024-07-12] VITALS (10 sets, daily range): BP systolic 110–132; BP diastolic 66–77; PULSE 78–84; TEMP 97.8–99.5
[2024-07-12 05:22] LABS: BASO % 0.5 % (0.0-2.0); EOS # 0.1 K/mm3 (0.0-0.7); EOS % 1.2 % (0.0-4.0); GRAN # 5.8 K/mm3 (1.4-6.5); GRAN % 77.1 % (42.2-75.2); HEMOGLOBIN 10.9 g/dl (13.5-18.0); LYMPH % 12.6 % (20.0-51.0); MEAN CELL VOLUME 88 fl (80.0-100.0); MEAN CORPUSCULAR HEMOGLOBIN 30 pg (27-31); MEAN CORPUSCULAR HGB CONC 34 g/dl (33.0-37.0); MEAN PLATELET VOLUME 8.7 fl (7.4-10.4); MONO # 0.6 K/mm3 (0.1-0.6); MONO % 7.8 % (1.7-9.3); PLATELET COUNT 276 K/mm3 (130-400); RED BLOOD COUNT 3.63 M/mm3 (4.20-5.60); REDCELL DISTRIBUTION WIDTH-CV 13.2 % (11.5-14.5)
[2024-07-12 05:34] LABS: HEMATOCRIT 32.1 % (42.0-52.0)
[2024-07-12 05:42] LABS: CALCIUM 9.9 mg/dL (8.4-10.2); CREATININE, serum 0.8 mg/dL (0.72-1.25); POTASSIUM 4.1 mEq/L (3.5-4.5)
[2024-07-13] VITALS (13 sets, daily range): BP systolic 102–128; BP diastolic 64–75; PULSE 74–91; TEMP 98–99.4
[2024-07-13 07:00] LABS: BASO % 0.5 % (0.0-2.0); EOS # 0.1 K/mm3 (0.0-0.7); EOS % 1.3 % (0.0-4.0); GRAN # 5.4 K/mm3 (1.4-6.5); GRAN % 69.2 % (42.2-75.2); HEMOGLOBIN 11.2 g/dl (13.5-18.0); LYMPH # 1.2 K/mm3 (1.2-3.4); LYMPH % 15.9 % (20.0-51.0); MEAN CELL VOLUME 90 fl (80.0-100.0); MEAN CORPUSCULAR HEMOGLOBIN 30 pg (27-31); MEAN CORPUSCULAR HGB CONC 33 g/dl (33.0-37.0); MEAN PLATELET VOLUME 9.4 fl (7.4-10.4); MONO # 0.9 K/mm3 (0.1-0.6); MONO % 11.7 % (1.7-9.3); PLATELET COUNT 299 K/mm3 (130-400); RED BLOOD COUNT 3.76 M/mm3 (4.20-5.60); REDCELL DISTRIBUTION WIDTH-CV 13.2 % (11.5-14.5)
[2024-07-13 07:12] LABS: HEMATOCRIT 33.7 % (42.0-52.0)
[2024-07-13 07:21] LABS: CALCIUM 10.1 mg/dL (8.4-10.2); CREATININE, serum 0.83 mg/dL (0.72-1.25); POTASSIUM 4.2 mEq/L (3.5-4.5)
--- NOTE | 2024-07-13 08:00 | NUR ---
PATIENT IS ORIENTED X2, NOTED CONFUSION/FORGETFULNESS. HX OF FREQUENT FALLS, TELESITTER IN ROOM. VSS. REPORTS LITTLE DISCOMFORT IN RLE THIS AM. GAVE TYLENOL WITH AM MEDS. NO C/O N/V. TOLERATING GENERAL DIET. RIGHT FORARM IV TO INT. CLEARY TO DD. 2 MAX ASSIST WITH TRANSFERS. PT/OT CONSULTED. HEAD TO TOE ASSESSMENT COMPLETE. BED ALARM ON. CALL LIGHT IN REACH. PATIENT'S ROOM IS DIRECTLY ACCROSS FROM NURSE STATION.
--- NOTE | 2024-07-13 12:30 | NUR ---
SW attended clinical rounds. Patient is still pending SNF acceptance. DEISI left message for Francisco or Mallory at [facility] to return call to discuss acceptance for rehab. Discharge plan: SNF
--- NOTE | 2024-07-13 21:36 | NUR ---
Patient assessed around 2024. Alert with confusion. Given scheduled Tylenol as requested for pain to right hip. Peripheral INT to right forearm. Received IV ABX per orders. Denies SOB and dyspnea. LS CTA. HRR. BSAx4. No edema. Steristrips to right hip surgical sites are CDI. Voices no questions, needs, or concerns at this time. In bed with call light within reach. High fall risk precautions in place. Bed alarm on.
[2024-07-14] VITALS (11 sets, daily range): BP systolic 99–122; BP diastolic 44–72; PULSE 78–97; TEMP 97.6–99.1
[2024-07-14 06:00] LABS: CREATININE, serum 0.8 mg/dL (0.72-1.25); POTASSIUM 4.5 mEq/L (3.5-4.5)
--- NOTE | 2024-07-14 06:02 | NUR ---
Patient took scheduled Tylenol this shift. Has not needed any PRN medications for pain. New Mepilex placed to bottom. Voices no questions, needs, or concerns at this time. In bed with call light within reach. High fall risk precautions in place. Bed alarm on.
[2024-07-14 06:25] LABS: HEMOGLOBIN 11.4 g/dl (13.5-18.0); MEAN CELL VOLUME 90 fl (80.0-100.0); MEAN CORPUSCULAR HEMOGLOBIN 30 pg (27-31); MEAN CORPUSCULAR HGB CONC 33 g/dl (33.0-37.0); MEAN PLATELET VOLUME 9.5 fl (7.4-10.4); PLATELET COUNT 313 K/mm3 (130-400); RED BLOOD COUNT 3.84 M/mm3 (4.20-5.60); REDCELL DISTRIBUTION WIDTH-CV 13.2 % (11.5-14.5)
[2024-07-14 06:26] LABS: HEMATOCRIT 34.6 % (42.0-52.0)
[2024-07-14 07:04] LABS: EOSINOPHIL 1 % (0-4); LYMPHOCYTE 20 % (20.0-51.0); METAMYELOCYTE 2 % (0-0); NEUTROPHILS 64 % (42.0-75.2); PLATELET ESTIMATE NORMAL (NORMAL)
--- NOTE | 2024-07-14 08:00 | NUR ---
PATIENT IS ORIENTED X2, NOTED CONFUSION/FORGETFULNESS. HX OF FREQUENT FALLS. VSS. REPORTS LITTLE DISCOMFORT IN RLE THIS AM. GAVE TYLENOL WITH AM MEDS. NO C/O N/V. TOLERATING GENERAL DIET. RIGHT FORARM IV TO INT. IV ABX GIVEN. CLEARY TO DD. 2 MAX ASSIST WITH TRANSFERS. PT/OT CONSULTED. HEAD TO TOE ASSESSMENT COMPLETE. BED ALARM ON. CALL LIGHT IN REACH. PATIENT'S ROOM IS DIRECTLY ACCROSS FROM NURSE STATION HE IS IMPULSIVE, TELESITTER REMOVED DUE TO NEED IN ER. STUDENT NURSE ALSO WORKING WITH PATIENT TODAY, SEE CHARTING.
--- NOTE | 2024-07-14 08:05 | NUR ---
Late entry: DEISI spoke with Yesenia, Aerospace Project Manager at [facility], regarding acceptance for skilled care. Yesenia stated that their Corporate declined patient for admission. DEISI met with treatment team and Leadership regarding patient discharge status. Patient has been referred to many SNF facilities with no accepts. 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 Message left for Graciela at [facility] to return call to discuss acceptance for halfway care that was discussed late last week. Discharge plan: LTC
--- NOTE | 2024-07-14 12:45 | NUR ---
DEISI attended clinical rounds. Patient remains stable for discharge. Currently no accepting facility for placement. DEISI staff case with Director Eliza Vincent who instructed to make follow up calls to existing referrals and expand referral area. DEISI and DEISI Ballard sent multiple follow up faxes and email referrals for LTC placement. The following facilities received updated clinical referrals: [facility], [facility], [facility], [place], [facility], [facility], [facility], [facility], [facility], [facility], [facility], [facility], [facility], [facility], [facility], [facility], Eliza, [facility]. The following facilities have declined referral: [facility], [facility], [facility], [facility], [facility], [facility], [facility], [facility] [place], [facility]. DEISI Ballard received call from [facility] stating they are reviewing for admission and from [facility] who also expressed interest in admission. Marsha has questions related to financials and Medicaid application. Discharge plan: LTC
--- NOTE | 2024-07-14 13:00 | NUR ---
DEISI spoke with Nicolasa at [facility] who could accept pt, but they would like to submit for auth with Chris and this can take 48 hours. DEISI inquired about taking him with auth pending and bill under his Medicaid. She reports that this is a case by case scenario by their Regional. But, they do accept him. DEISI spoke with Director Eliza Vincent and wanted to ensure they could still accept knowing he has costly HIV medications. DEISI spoke with Marian and they would like to attempt auth, but aware it will be likely declined or skilled a few days. DEISI informed her that under a skilled stay, she would need a Carve Out letter from insurance and would have to contact them to request this. DEISI informed her the other option is taking pt LTC/Medicaid pending with the [employer] paying. She would like to reach out to the Foundation to navigate this and will reach out to insurance. DEISI provided her PARRIS Arshad [phone] number with "[employer]" that assist with the Foundation program. Nicolasa also reports she will speak with pt's son, Carson. DEISI team spoke with Marsha Bolaños Joseph who will have their DON call with additional questions/concerns. DEISI, Director Eliza, and DEISI Downs all will attend a 10am meeting tomorrow [facility] to discuss pt's Medicaid and how to change it to long-term care half-way.
--- NOTE | 2024-07-14 21:43 | NUR ---
PATIENT ALERT AND ORIENTED X2 WITH INTERMITTENT CONFUSION. PATIENT HERE FOR RIGHT HIP FX. RIGHT HIP SURGICAL SITES X3 WITH STERI STRIPS APPLIED. PATIENT DENIES ANY PAIN AT THIS TIME. IV TO RIGHT FA INT AND FLUSHES WELL. PM MEDS ADMINISTERED. SEE SKIN ASSESSMENT. NO FURTHER NEEDS. CALL LIGHT IN REACH. BED ALARM ON.
[2024-07-15] VITALS (11 sets, daily range): BP systolic 100–119; BP diastolic 63–78; PULSE 72–83; TEMP 97.5–98.6
--- NOTE | 2024-07-15 10:32 | NUR ---
Pt doing well, tolerating breakfast. He is sitting up in the chair and working with therapy as scheduled. PRN pain medication given. Chair alarm on
--- NOTE | 2024-07-15 14:17 | NUR ---
pressroom worker attended 10am meeting with Director Kay, DEISI Downs, and CARRIE Hanna Audra will work to contact [facility] to update pt's Medicaid application to change to shelter placement with finacials added. Audra is going to get connected with the [employer] to get more information on pt's medication voucher program and ensure he is not on housing assistance to avoid him getting evicted. Audra suggest a discussion re: Goals of Care vs Hospice. Follow-up meeting will be held tomorrow at 9am. DEISI team and Director Eliza have spoke with DEISI Cota at pt's PCP to have him considered by Dr. Poole for hospice dx. DEISI spoke with [facility] OP. in the morning, who reported the Medicaid anita needs to be edited prior to his acceptance. Sonia reports their Regional is willing to bring him in without prior auth from Medicare [employer]. DEISI emailed referral to Silvestre Roberts with [facility] facilities. DEISI received declines from Yadiel Coffey and [facility]ha [facility]. DEISI resent to [facility]. DEISI returned missed voicemail and left message to Iris at [facility]. Discharge Plan: LTC- Medicaid pending
--- NOTE | 2024-07-15 16:00 | NUR ---
Pt doing okay, wants to leave, states he has been here long enough. Explained we are trying to find somewhere for him to go to help with therapy. Pt states he understands. Chair/bed alarm on
--- NOTE | 2024-07-15 22:17 | NUR ---
PATIENT ALERT AND ORIENTED X4. VSS. PATIENT HERE FOR RIGHT FEMUR FX. RIGHT HIP WITH 3 SITES WITH STERI STRIPS APPLIED. IV TO RIGHT FA INT AND FLUSHES WELL. PATIENT DENIES PAIN AT THIS TIME. PM MEDS ADMINISTERED. [place] DD WITH [facility]. PATIENT RESTING IN BED, CALL LIGHT IN REACH. BED ALARM ON.
[2024-07-16] VITALS (12 sets, daily range): BP systolic 102–123; BP diastolic 67–76; PULSE 62–78; TEMP 97.3–98.6
--- NOTE | 2024-07-16 08:30 | NUR ---
SHIFT ASSESSMENT COMPLETED. PATIENT RESTING IN BED ABOUT TO WORK WITH THERAPY. ALL MORNING MEDS GIVEN ORDERED. PATIENT EXPRESSES PAIN 2/10 NO PAIN MEDS GIVEN AT THIS TIME. FALL PRECAUTIONS IN PLACE AND CALL LIGHT IN REACH
--- NOTE | 2024-07-16 13:43 | NUR ---
DEISI left a voicemail to Marian at [facility] to inquire if they reviewed pt further. DEISI faxed updates. DEISI was informed [facility] in [facility] was interested. DEISI faxed updates, then financials to their Business Office f: [phone] Lfor. DEISI attended 9am meeting with [facility] staff with Director Eliza Vincent and DEISI Downs. Pt's financials were obtained from son and will be sent to the Medicaid Clearinghouse for updates. There are concerns with him having too much and needing to spend down. [facility] suggested [facility] in , [place] who specializes in HIV clients. DEISI spoke with Director Brodie with [facility] and he is open to reviewing pt and states they specialize in Medicaid assistance. He has two openings. DEISI faxed referral at 1:45pm. DEISI completed CARE Assessment with pt and spoke with son, Carson to get further information about pt's history. DEISI submitted this on [facility] CARE portal. DEISI spoke with Natalie, financial services officer who has JESSICA's signed by pt and will fax financials to [place]. She will call them Saturday or Saturday to f/u on status and anticiapates an answer per her cured meat packing supervisor, Loli. Discharge Plan: LTC
--- NOTE | 2024-07-16 14:22 | NUR ---
SW met with patient to assess mental status and update on discharge plan. Patient completing bed exercises with PT upon SW arrival. Patient alert, oriented to person and place. He reports to know he's in [facility] but cannot remember why he's here. When SW explained, patient stated "Oh , that's right". Patient updated on team trying to locate placement for him due to him not being safe to return to his apartment alone. Patient voiced understanding. SW will continue to work on LTC placement with team. Discharge plan: LTC
--- NOTE | 2024-07-16 21:46 | NUR ---
PATIENT ALERT AND ORIENTED 3 WITH INTERMITTENT CONFUSION. VSS. PATIENT HERE FOR RIGHT HIP FX. INCISIONS X3 TO RIGHT HIP, CDI WITH STERI-STRIPS. IV TO RIGHT FA INT AND FLUSHES WELL. PATIENT ON RA. PM MEDS ADMINISTERED. NO FURTHER NEEDS. CALL LIGHT IN REACH. BED ALARM ON.
[2024-07-17] VITALS (11 sets, daily range): BP systolic 102–132; BP diastolic 63–79; PULSE 67–73; TEMP 97.4–98.3
--- NOTE | 2024-07-17 10:46 | NUR ---
SHIFT ASSESSMENT COMPLETE. VSS. PATIENT RESTING IN RECLINER AFTER PT. ALL MORNING MEDS GIVEN ORDERED. PATIENTSTATES PAIN IS BETTER TODAY 11/09. PATIENT ABLE TO ANSWER NAME, , AND THAT HE IS IN THE HOSPITAL THIS AM. PATIENT HAS NO REQUEST THIS AM. CALL LIGHT IN REACH AND FALL PRECAUTIONS IN PLACE
--- NOTE | 2024-07-17 13:23 | NUR ---
fuel system maintenance worker attended 10am [facility] meeting to discuss pt's case. CARRIE Zhu reports they will reach out to the [facility] to get costs or coverage on pt's medication, but they likely cannot put anything into writing due to not being his managed care organization. DEISI advised this was one of the biggest barriers is finding a payor for the medications if reportedly, the [employer] will not pay/assist when he enters a jail and pt cannot pay himself. Medicaid will pay once approved- still pending and financials sent and student financial services counselor, Natalie confirmed they changed the application to jail placement and are still making a determination. CARRIE questioned if pt could go home. DEISI urged that this is not safe and pt likely will need to stay in LTC. Audra discussed an AL/HOME PLUS as before 90 days "he cannot stay in LTC and cannot have an eviction caused." Audra was provided pt's two DPOA-HC contact to discuss his apartment issue. DEISI stated that pt could be a good canidiate for home plus or AL after being in LTC, but he needs supervision, medication management, and oversight. CARRIE Zhu questioned if SW called all the previously sent to facilities again to inform them on the Medicaid jail status changed and if they all knew about his HIV. DEISI advised that some knew, some did not; so they were told, then declined following. DEISI informed them that they are a handful of facilities tenatively looking, but awaiting on a payor for the medication. DEISI faxed updates to [facility] Vice President Regulatory, Marsha Cagle, [facility], and emailed to SUDHEER Gary. Sonia at [facility] reports their BOM/DON are reviewing and requests the financials. DEISI faxed these and informed changes were made with the Medicaid Clearing house. DEISI spoke with Brodie at [facility] stating pt is a good candidate, but their BOM is reviewing financials. DEISI informed him of pt having [place] medicaid pending, not [place]. DEISI spoke with Yolanda at [facility] who reports their BOM is reviewing as well. Discharge Plan: LTC- Medicaid pending
--- NOTE | 2024-07-17 15:38 | NUR ---
DEISI was informed by [facility] that their BOM will decline if they do not receive the Medicaid application, which was updated. DEISI spoke with financial services associate, Natalie and DEISI Cota at the PCP office (where it was submitted.) Natalie is unable to gain access of it through the portal or Medicaid ClearingHouse. DEISI Cota reports their portal was not allowing whom submitted it, to view/print the updated version. DEISI informed CARRIE Chery and Audra of this and request for assistance. Audra reports the Clearinghouse will only provide it to the [facility] and whomever submitted it. DEISI spoke with DEISI Cota and she reports Dr. Poole would decline to put pt on hospice. DEISI received an email from [facility] that they can accept pt on Saturday at their [place] location. She reports the son was not keen on this due to distance and wanted to discuss with her Saturday. DEISI advised pt will discharge as he is ready and this is pt's only accepted place. DEISI emailed the CARE Assessment to Silvestre as well. DEISI spoke with son, Carson to provide update. He reports being taken aback, but agreeable due to this is the only facility accepting pt. DEISI advised he will be discharged Saturday. Carson said Silvestre at [facility] did try to call him to discuss insurance changes from [facility]. DEISI advised Silvestre told this SW she would reach out to him after this discussion happened. He voiced understanding and is available until 5pm as he has a "DJ set." DEISI informed Silvestre that son is agreeable and willing to discuss if insurance should be changed from [facility] in the future. DEISI spoke with partner, Hafsa to provide update. She was tearful but had an reasonable understanding of the reasons why pt had to go here. She inquired about if she could change his insurance now and have him somewhere closer. DEISI advised she could work with the facility, CARRIE Zhu, and Carson to discuss his insurance and changes along with this in the future. She inquired about doing so and having him be placed elsewhere. DEISI stated she can have him moved later, but he discharging from the hospital to [place] on Saturday. Hafsa understood all information, but was emotional. DEISI informed eJnnifer Schwartz who will pass along to RN. DEISI received an email from Loli Cobos at PCP office who completed the application. She reports once the "letters" are sent out she will have access once the application is mailed. Saturday she can access it and mail it out. DEISI informed [facility] team and PCP DEISI Cota that placement was secured. Discharge Plan: [facility] Saturday
[2024-07-18] VITALS (10 sets, daily range): BP systolic 110–120; BP diastolic 65–74; PULSE 64–82; TEMP 98–98.4
--- NOTE | 2024-07-18 05:05 | NUR ---
PT C/O SEVERE LEFT SIDE PAIN, PREVIOUSLY ONLY REPORTED PAIN FROM RIGHT HIP, UPON EXAM, NOTED 2- 1/2 DOLLAR SIZED SOFT LUMPS OVER LOWER RIBS, PT STATES PAIN IS WORSE WITH TOUCH, TYLENOL AND OXYCODONE GIVEN FOR PAIN, NOTIFIED FREDY RUIZ PER PHONE, HE WILL COME SEE PT OR LET DAY SHIFT KNOW.
--- NOTE | 2024-07-18 09:30 | NUR ---
SHIFT ASSESSMENT COMPLETE. VSS. PATIENT AWAKE IN THE RECLINER. ALL MORNING MEDS GIVEN ORDERED. PATIENT STATES PAIN 2/10 NO PAIN MEDS REQUIRED AT THIS TIME. PATIENT COMPLAINING OF PAIN TO LEFT RIBS, THERE IS A PLACE ON HIS RIBS THAT LOOKS LIKE A POCKET OF FLUID, REPORTED TO DR. QUINTANILLA AND HE STATES [facility] WILL CONTINUE TO WATCH IT NO NEW ORDERES AT THSI TIME. PATIENT HAS NO FURTHER REQUEST.FALL PRECAUTIONS IN PLACE AND CALL LIGHT IN REACH
--- NOTE | 2024-07-18 11:19 | NUR ---
SW sent clinical updates on patient to [facility] ([facility])
--- NOTE | 2024-07-18 12:01 | NUR ---
CLEARY CATHETER REMOVED. 150ML OF URINE OUT AND 8CC OF SALINE REMOVED FROM CATHETER BALLOON. PATIENT TOLERATED WELL. URINAL GIVEN TO PATIENT TO VOID WHEN NEEDED.
[2024-07-18] MEDS ORDERED: Acetaminophen 500 MG TAB PO SCH (18:00)
[2024-07-19] VITALS (11 sets, daily range): BP systolic 102–126; BP diastolic 63–78; PULSE 63–69; TEMP 97.3–98.3
--- NOTE | 2024-07-19 10:02 | NUR ---
piggery worker emailed updates to Silvestre Gary with [facility] [place]. SW inquired about which pharmacy they prefer for medications. DEISI spoke with son, Carson and completed IM from Medicare. He verbalized understanding and provided verbal consent. Original in chart and copy in room. DEISI informed pt of discharge tomorrow to [facility] in [place]. He said "so you are going to listen to them." Pt states he will have further questions once he gets there. DEISI urged him to speak with CM cook house laborer once he is there. Discharge Plan: [facility] in [place] tomorrow
--- NOTE | 2024-07-19 11:28 | NUR ---
SHIFT ASSESSMENT COMPLETED. VSS. PATIENT AWAKE WORKING WITH THERAPY. ALL MORNING MEDS GIVEN ORDERED. PATIENT STATES PAIN 2/10 PAIN MED GIVEN ORDERED. PATIENT BLDDER SCANNED 875ML IN BLADDER, RECEIVED ORDERS TO PLACE A NEW CLEARY DUE TO BLADDER RETENTION. PATIENT HAS NO OTHER REQUEST AT THIS TIME. FALL PRECAUTIONS IN PLACE. CALL LIGHT INN REACH
--- NOTE | 2024-07-19 13:45 | NUR ---
CLEARY CATHETER PLACED 1100ML OF URINE OUT. 10CC OF SALINE PLACED IN [place], PATIENT DID NOT TOLERATE PLACEMENT OF CATHETER WELL.
[2024-07-20] VITALS: BP 109/66; PULSE 73; TEMP 98
[2024-07-20 00:27] VITALS: BP_SYST 109
[2024-07-20 04:00] VITALS: BP 125/79; PULSE 64; TEMP 97.8
[2024-07-20 06:33] LABS: HEMOGLOBIN 11.1 g/dl (13.5-18.0); MEAN CELL VOLUME 90 fl (80.0-100.0); MEAN CORPUSCULAR HEMOGLOBIN 29 pg (27-31); MEAN CORPUSCULAR HGB CONC 33 g/dl (33.0-37.0); PLATELET COUNT 328 K/mm3 (130-400); RED BLOOD COUNT 3.82 M/mm3 (4.20-5.60); REDCELL DISTRIBUTION WIDTH-CV 13.3 % (11.5-14.5)
[2024-07-20 06:52] LABS: CALCIUM 10.1 mg/dL (8.4-10.2); CREATININE, serum 0.95 mg/dL (0.72-1.25); MAGNESIUM 2.1 mg/dL (1.6-2.6); POTASSIUM 4.4 mEq/L (3.5-4.5)
[2024-07-20 06:59] LABS: HEMATOCRIT 34.2 % (42.0-52.0)
[2024-07-20 07:27] LABS: PLATELET ESTIMATE NORMAL (NORMAL)
[2024-07-20 08:00] VITALS: BP 124/75; PULSE 67; TEMP 97.9
[2024-07-20] MEDS ORDERED: FLOMAX 0.40.4 MG/CAP PO (08:47)
[2024-07-20] MEDS ORDERED: ASPIRIN E.C. 8181 MG PO (08:48)
[2024-07-20] MEDS ORDERED: TYLENOL 325MG325 MG PO (08:50)
[2024-07-20 08:59] LABS: BAND 2 % (0-10); LYMPHOCYTE 29 % (20.0-51.0); NEUTROPHILS 59 % (42.0-75.2)
[2024-07-20 09:00] LABS: EOSINOPHIL 1 % (0-4)
--- NOTE | 2024-07-20 09:20 | NUR ---
SHIFT ASSESSMENT COMPLETED. PATIENT RESTING IN BED. ALL MORNING MEDS GIVEN ORDERED. PATIENT STATES PAIN 3/10 IN RT HIP WHEN LYING STILL TYLENOL GIVEN ORDERED. FALL PRECAUTIONS IN PLACE AND CALL LIGHT IN REACH. PT ARRIVING SOON TO WORK WITH PATIENT FOR THE MORNING BEFORE DISCHARGING.
[2024-07-20 11:47] VITALS: BP 100/62; PULSE 78; TEMP 97.7
[2024-07-20 12:33] VITALS: BP_SYST 100
--- NOTE | 2024-07-20 14:09 | NUR ---
Construction Administrator spoke with Silvestre at [facility] who advised they did not have transport available today. DEISI got approval from Eliza Vincent, Case Management to secure EMS transport to be billed to the hospital. DEISI contacted [facility] and scheduled transport for 1330. [facility] is sending a private vehicle and DEISI advised staff would be able to assist in/out of the vehicle. DEISI faxed orders to Silvestre at [facility] and gave transport time. DEISI also notified Carson of transport time. Discharge Plan: [facility]
== END 2024-07-20 13:38 | DRG 480 ==
LOC: COL.ER 16:55 → SURG 19:37
PROVIDERS: Internal Medicine; Nurse Practitioner Family; Orthopaedic Surgery; Physician Assistant; ADMIT Internal Medicine
PROC: BW1CYZZ Fluoroscopy of Lower Extremity using Other Contrast (ICD-10-PCS; 2024-06-30)
PROC: 0QS604Z Reposition Right Upper Femur with Internal Fixation Device, Open Approach (ICD-10-PCS; principal; 2024-06-30 11:00)
DX: S72.111A Displaced fracture of greater trochanter of right femur, initial encounter for closed fracture (principal); J18.9 Pneumonia, unspecified organism; S02.40CA Maxillary fracture, right side, initial encounter for closed fracture; B20 Human immunodeficiency virus [HIV] disease; J98.11 Atelectasis; R58 Hemorrhage, not elsewhere classified; S00.11XA Contusion of right eyelid and periocular area, initial encounter; S01.81XA Laceration without foreign body of other part of head, initial encounter; F03.90 Unspecified dementia, unspecified severity, without behavioral disturbance, psychotic disturbance, mood disturbance, and anxiety; R33.9 Retention of urine, unspecified; E78.5 Hyperlipidemia, unspecified; F17.210 Nicotine dependence, cigarettes, uncomplicated; W18.30XA Fall on same level, unspecified, initial encounter; Y92.039 Unspecified place in apartment as the place of occurrence of the external cause; Z88.0 Allergy status to penicillin
CPT/HCPCS: A9284; C1713; C1769; J0688; J0690; J0692; J1100; J2405; J2704; J2795; J3010; J7030; Q9967